=== PATIENT | female | born 1950 | race Native Hawaiian/Other Pacific Islander ===

== ENCOUNTER 2022-05-13 09:05 | Outpatient (CLI) | payer OTHER | END 2022-05-13 19:12 | disposition home or self-care (01) | LOC: RAD 09:05 | PROVIDERS: ATTEND Nurse Practitioner Family | DX: J20.9 Acute bronchitis, unspecified (principal); I51.7 Cardiomegaly; R07.89 Other chest pain; R42 Dizziness and giddiness; R06.09 Other forms of dyspnea; N95.1 Menopausal and female climacteric states; M19.90 Unspecified osteoarthritis, unspecified site; N95.8 Other specified menopausal and perimenopausal disorders ==

== ENCOUNTER 2023-02-27 13:40 | Emergency (ER) | payer OTHER ==
[~2023-02-27] VITALS: Ht 160 cm; Wt 76.2 kg
[2023-02-27 15:00] VITALS: BP 140/68
== END 2023-02-27 15:00 | disposition home or self-care (01) ==
LOC: ED 13:40
PROC: 2W3MX1Z Immobilization of Left Lower Extremity using Splint (ICD-10-PCS; principal; 2023-02-27)
DX: S93.402A Sprain of unspecified ligament of left ankle, initial encounter (principal); S82.892A Other fracture of left lower leg, initial encounter for closed fracture; W19.XXXA Unspecified fall, initial encounter
CPT/HCPCS: 99283